=== PATIENT | male | born 1935 | race Caucasian/White ===

== ENCOUNTER 2019-09-13 17:11 | Emergency (ER) | payer MEDICARE, OTHER ==
[2019-09-13] MEDS ORDERED: Aspirin 81 MG Tab.Chew PO ONE (18:48)
--- NOTE | 2019-09-13 18:52 | EDM.PDOC ---
ED HPI GENERAL MEDICAL PROBLEM - General Chief Complaint: General Stated Complaint: NECK/LEFT ARM PAIN Time Seen by Provider: 09/13/19 18:37 Source of Information: Reports: Patient, Family, RN Notes Reviewed History Limitations: Reports: No Limitations - History of Present Illness INITIAL COMMENTS - FREE TEXT/NARRATIVE: 83-year-old gentleman presents emergency department a complaint of left shoulder and neck pain, he initially woke up with this pain at 3 AM is quite intense and now it ranges about 4-5 out of 10 this pain has been ongoing for the last 2 to 3 weeks will wax and wane he states exertion makes it feel better no shortness of breath no diaphoresis no nausea or vomiting does have an extensive cardiac history. Did contact the cardiac care nurse this evening recommended immediate follow-up in the emergency department Shoulder Pain Score (Numeric/FACES): 5 - Related Data Allergies Allergy/AdvReac Type Severity Reaction Status Date / Time No Known Allergies Allergy Verified 09/13/19 19:00 Home Meds: Home Meds Aspirin 81 mg PO DAILY 09/13/19 [History] Cholecalciferol (Vitamin D3) [Vitamin D3] 1,000 unit PO DAILY 09/13/19 [History] Clopidogrel [Plavix] 75 mg PO DAILY 09/13/19 [History] Finasteride [Proscar] 5 mg PO DAILY 09/13/19 [History] Furosemide [Lasix] 20 mg PO DAILY PRN 09/13/19 [History] Niacin 500 mg PO BID 09/13/19 [History] Nitroglycerin 0.4 mg PO ASDIRECTED PRN 09/13/19 [History] Embudo-3/DHA/Epa/Fish Oil [Embudo 3 500 Softgel] 1 cap PO DAILY 09/13/19 [History] Pantoprazole Sodium [Protonix] 40 mg PO DAILY 09/13/19 [History] carvediloL [Coreg] 25 mg PO BID 09/13/19 [History] glipiZIDE [Glipizide ER] 2.5 mg PO DAILY 09/13/19 [History] Past Medical History HEENT History: Reports: Hard of Hearing Cardiovascular History: Reports: CAD, Heart Failure, High Cholesterol, Hypertension, HI, Pacemaker, Other (See Below) Other Cardiovascular History: HI x5 Genitourinary History: Reports: Prostate Disorder Musculoskeletal History: Reports: Fracture Other Musculoskeletal History: wrist fx CMT 1A Endocrine/Metabolic History: Reports: Diabetes, Type II - Infectious Disease History Infectious Disease History: Reports: Chicken Pox, Measles, Mumps - Past Surgical History HEENT Surgical History: Reports: Cataract Surgery Cardiovascular Surgical History: Reports: Coronary Artery Stent, Other (See Below) Other Cardiovascular Surgeries/Procedures: stents x9 GI Surgical History: Reports: Colonoscopy Musculoskeletal Surgical History: Reports: Other (See Below) Other Musculoskeletal Surgeries/Procedures:: ankle fusion Social & Family History - Tobacco Use Smoking Status *Q: Never Smoker Second Hand Smoke Exposure: Yes - Caffeine Use Caffeine Use: Reports: Coffee, Tea - Recreational Drug Use Recreational Drug Use: No ED ROS GENERAL - Review of Systems Review Of Systems: See Below Constitutional: Reports: No Symptoms HEENT: Reports: No Symptoms Respiratory: Reports: No Symptoms Cardiovascular: Reports: No Symptoms GI/Abdominal: Reports: No Symptoms : Reports: No Symptoms Musculoskeletal: Reports: Neck Pain, Shoulder Pain Skin: Reports: No Symptoms Neurological: Reports: No Symptoms ED EXAM, GENERAL - Physical Exam Exam: See Below Exam Limited By: No Limitations General Appearance: Alert, WD/WN, No Apparent Distress Neck: Normal Inspection, Supple, Non-Tender, Full Range of Motion Respiratory/Chest: No Respiratory Distress, Lungs Clear, Normal Breath Sounds, No Accessory Muscle Use, Chest Non-Tender Cardiovascular: Regular Rate, Rhythm, No Murmur GI/Abdominal: Soft, Non-Tender Extremities: Normal Inspection (Left shoulder), Normal Range of Motion, Non- Tender Course - Vital Signs Last Recorded V/S: Last Vital Signs Temp 98.7 F 09/13/19 18:18 Pulse 70 09/13/19 20:05 Resp 20 09/13/19 20:05 BP 155/89 H 09/13/19 20:05 Pulse Ox 96 09/13/19 18:43 - Orders/Labs/Meds Orders: Active Orders 24 hr Category Date Time Status Cardiac Monitoring [RC] .As Directed Care 09/13/19 18:49 Active EKG Documentation Completion [RC] ASDIRECTED Care 09/13/19 18:49 Active Chest 2V [CR] Stat Exams 09/13/19 18:49 Taken EKG 12 Lead [EK] Stat Ther 09/13/19 18:49 Ordered Labs: Laboratory Tests 09/13/19 09/13/19 Range/Units 19:00 19:00 WBC 7.4 (4.5-11.0) K/uL RBC 4.70 (4.30-5.90) M/uL Hgb 13.4 (12.0-15.0) g/dL Hct 41.0 (40.0-54.0) % MCV 87 (80-98) fL MCH 29 (27-31) pg MCHC 33 (32-36) % Plt Count 280 (150-400) K/uL Neut % (Auto) 72 H (36-66) % Lymph % (Auto) 15 L (24-44) % [place] % (Auto) 11 H (2-6) % Eos % (Auto) 2 (2-4) % Baso % (Auto) 0 (0-1) % Sodium 133 L (140-148) mmol/L Potassium 4.1 (3.6-5.2) mmol/L Chloride 98 L (100-108) mmol/L Carbon Dioxide 26 (21-32) mmol/L Anion Gap 13.1 (5.0-14.0) mmol/L BUN 13 (7-18) mg/dL Creatinine 0.6 L (0.8-1.3) mg/dL Est Cr Clr Drug Dosing 87.13 mL/min Estimated GFR (MDRD) > 60 (>60) Glucose 128 H (74-106) mg/dL Calcium 9.1 (8.5-10.1) mg/dL Total Bilirubin 0.4 (0.2-1.0) mg/dL AST 23 (15-37) U/L ALT 30 (12-78) U/L Alkaline Phosphatase 80 (46-116) U/L Troponin I < 0.017 (0.000-0.056) ng/mL Total Protein 6.8 (6.4-8.2) g/dL Albumin 2.7 L (3.4-5.0) g/dL Globulin 4.1 H (2.3-3.5) g/dL Albumin/Globulin Ratio 0.7 L (1.2-2.2) Meds: Medications Discontinued Medications Generic Name Dose Route Start Last Admin Trade Name Freq PRN Reason Stop Dose Admin Aspirin 324 mg 09/13/19 18:48 09/13/19 18:56 Aspirin PO 09/13/19 18:49 324 mg ONETIME ONE Administration Ketorolac Tromethamine 30 mg 09/13/19 19:53 09/13/19 20:05 Toradol IM 09/13/19 19:54 30 mg ONETIME ONE Administration Departure - Departure Time of Disposition: 20:32 Disposition: Home, Self-Care 01 Condition: Fair Clinical Impression: Neck pain - Discharge Information Instructions: Musculoskeletal Pain Referrals: PCP,None [Primary Care Provider] - Forms: ED Department Discharge Additional Instructions: Try Motrin or ibuprofen as needed for pain control, please follow-up with your primary care in the next 3 to 5 days for reevaluation call or return to the emergency department worsening of symptoms Sepsis Event Note - Evaluation Sepsis Screening Result: No Definite Risk - Focused Exam Vital Signs: Vital Signs Temp Pulse Resp BP Pulse Ox 09/13/19 20:05 70 20 155/89 H 09/13/19 18:43 70 12 162/85 H 96 09/13/19 18:18 98.7 F 73 16 149/78 H 98 09/13/19 18:16 98.7 F 73 16 149/78 H 98 Date Exam was Performed: 09/13/19 Time Exam was Performed: 20:31 - My Orders Last 24 Hours: My Active Orders 09/13/19 18:49 Cardiac Monitoring [RC] .As Directed EKG Documentation Completion [RC] ASDIRECTED Chest 2V [CR] Stat EKG 12 Lead [EK] Stat - Assessment/Plan Last 24 Hours: My Active Orders 09/13/19 18:49 Cardiac Monitoring [RC] .As Directed EKG Documentation Completion [RC] ASDIRECTED Chest 2V [CR] Stat EKG 12 Lead [EK] Stat Plan: Assessment Acuity = acute Site and laterality = neck and left shoulder pain Etiology = unknown suspicious for muscle skeletal Manifestations = none Location of injury = Home Lab values = CBC unremarkable sodium low at 133 consistent hyponatremia troponin is negative EKG demonstrates a left bundle branch block no old EKGs available chest x-ray I did review films myself I cannot appreciate any acute process, the official read from radiology is pending Plan He had good relief with the Toradol provided in the emergency department he is going to follow-up with his primary care in the next 3 to 5 days for reevaluation This note was dictated using [email or web address] voice recognition software please call with any questions on syntax or grammar.
[2019-09-13] MEDS ORDERED: Ketorolac 30 MG/ML SDV IM ONE (19:53)
--- NOTE | 2019-09-14 10:14 | CR ---
CHEST: 2 view CLINICAL HISTORY:Chest pain COMPARISON:None FINDINGS: Heart size and pulmonary vascularity are normal. There are atherosclerotic changes in the aorta. There is a from a cardiac pacer/defibrillator. There is some streaky density in the left lung base. This is most likely some patchy atelectasis. Infiltrate is felt less likely. Impression: Streaky left basal density is likely some subsegmental atelectasis. Infiltrate is felt less likely. Primary cardiac pacer/defibrillator
== END 2019-09-13 20:43 | disposition home or self-care (01) ==
LOC: JP.ED 17:11
DX: M54.2 Cervicalgia (principal); M25.512 Pain in left shoulder; I25.10 Atherosclerotic heart disease of native coronary artery without angina pectoris; I11.0 Hypertensive heart disease with heart failure; I50.9 Heart failure, unspecified; I25.2 Old myocardial infarction; E11.9 Type 2 diabetes mellitus without complications; Z77.22 Contact with and (suspected) exposure to environmental tobacco smoke (acute) (chronic); Z79.82 Long term (current) use of aspirin; Z79.899 Other long term (current) drug therapy; Z79.02 Long term (current) use of antithrombotics/antiplatelets; Z79.84 Long term (current) use of oral hypoglycemic drugs
CPT/HCPCS: 36415; 71046; 71046-26; 80053; 84484; 85025; 93005; 96372; 99283; 99284-25; A9270-GY; J1885